=== PATIENT | male | born 1965 | race Caucasian/White ===

== ENCOUNTER 2017-12-02 11:53 | Emergency (ER) | payer OTHER ==
[~2017-12-02] VITALS: Ht 188 cm; Wt 86.2 kg
[2017-12-02] MEDS ORDERED: MORPHINE SULFATE 10 MG/ML VIAL. IM ONE (12:15)
[2017-12-02] MEDS ORDERED: IBUPROFEN 800 MG TABLET. PO ONE (12:15)
[2017-12-02] MEDS ORDERED: diazePAM 5 MG TABLET PO ONE (12:15)
--- NOTE | 2017-12-02 12:28 | PHYS DOC ---
Past Medical History Past Medical History: Other Additional Past Medical Histor: low back pain Past Surgical History: Other Additional Past Surgical Histo: left eye surgery Alcohol Use: None Drug Use: None Adult General Chief Complaint Chief Complaint: BACK PAIN OR INJURY [facility] HPI Patient is a 52 year old male who presents with low back pain. 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 Patient states she was moving a heavy couch 4 days ago. He did not have any fall or trauma. He did develop spasm in the low back and pain 2 days ago. He complains of significant pain today. The pain intermittently radiates down the right leg. He has no weakness, numbness or tingling, and no difficulties with elimination. No fever or chills. Review of Systems Review of Systems Constitutional: Denies fever or chills Eyes: Denies change in visual acuity HENT: Denies nasal congestion or sore throat Respiratory: Denies cough or shortness of breath Cardiovascular: No additional information not addressed in HPI GI: Denies abdominal pain, nausea : Denies dysuria or hematuria Integument: Denies rash Neurologic: Denies headache Endocrine: Denies polyuria All other systems were reviewed and found to be within normal limits, except as documented in this note. Current Medications Current Medications Current Medications Medications (Trade) Dose Ordered Sig/[place] Start Time Stop Time Status Last Admin Dose Admin Diazepam (Valium) 5 mg 1X ONCE 12/02/17 12:15 12/02/17 12:18 DC 12/02/17 12:25 5 MG Ibuprofen (Motrin) 800 mg 1X ONCE 12/02/17 12:15 12/02/17 12:18 DC 12/02/17 12:24 800 MG Morphine Sulfate (Morphine Sulfate) 10 mg 1X ONCE 12/02/17 12:15 12/02/17 12:18 DC 12/02/17 12:27 10 MG Allergies Allergies Allergies Coded Allergies Type Severity Reaction Last Updated Verified Penicillins Allergy Intermediate HIVES 06/10/14 No Physical Exam Physical Exam Constitutional: Well developed, well nourished, mild distress 2/2 pain with some antalgic movements HENT: Normocephalic, atraumatic, bilateral external ears normal Neck: Normal range of motion Cardiovascular:Heart rate regular rhythm, no murmur Lungs & Thorax: Bilateral breath sounds clear to auscultation Skin: Warm, dry, no erythema, no rash Back: diffuse TTP over lumbar spine. Neurologic: Alert and oriented X 3, 5/5 motor strength bilateral LE's. 2/4 DTR' s at achilles and patellar levels Psychologic: Affect normal Current Patient Data Vital Signs Vital Signs Date Time Temp Pulse Resp B/P (MAP) Pulse Ox O2 Delivery O2 Flow Rate FiO2 12/02/17 12:27 20 Room Air 12/02/17 12:08 98.3 99 186/86 (119) 99 98.3 EKG EKG [] Radiology/Procedures Radiology/Procedures [] Course & Med Decision Making Course & Med Decision Making Pertinent Labs and Imaging studies reviewed. (See chart for details) 12:20: patient is seen and examined. No red flags on physical exam or HPI. Meds ordered for pain. 13:25: Patient's pain is much improved. He has a family member present who will be driving him home. Plan is for discharge home. He is given prescriptions for Valium, Percocet, ibuprofen. Appropriate use of these medications is discussed and all of his questions are answered prior to discharge. Patient is encouraged to follow-up with his primary care doctor or return to the emergency room for any new or worsening symptoms. Dragon Disclaimer Dragon Disclaimer This electronic medical record was generated, in whole or in part, using a voice recognition dictation system. Departure Departure Referrals: UNKNOWN PCP NAME (PCP) Scripts Diazepam (VALIUM) 5 Mg Tablet 5 MG PO TID for muscle spasm, #21 TAB Prov: BOSSMAN CANTU DO 12/02/17 Oxycodone/Apap 5-325 (PERCOCET 5-325 MG TABLET) 1 Each Tablet 1-2 EACH PO PRN TID PRN for severe pain, #20 TAB pain Prov: BOSSMAN CANTU DO 12/02/17 Ibuprofen (IBUPROFEN) 800 Mg Tablet 800 MG PO PRN TID PRN for PAIN, #30 TAB take with food or milk to avoid upsetting stomach Prov: BOSSMAN CANTU DO 12/02/17 BOSSMAN CANTU DO Dec 02, 2017 12:28
[2017-12-02] MEDS ORDERED: IBUP-1060 PO (13:25)
[2017-12-02] MEDS ORDERED: OXYC-323 PO (13:25)
[2017-12-02] MEDS ORDERED: DIAZ5TAB PO (13:25)
[2017-12-02 13:43] VITALS: BP 180/96
== END 2017-12-02 13:43 | disposition home or self-care (01) ==
LOC: ER 11:53
DX: M54.5 Low back pain (principal); Z88.0 Allergy status to penicillin
CPT/HCPCS: 96372; 99283; J2270